=== PATIENT | male | born 1980 | race Asian ===

== ENCOUNTER 2023-01-25 11:07 | Day surgery (SDC) | payer OTHER ==
[~2023-01-25] VITALS: Ht 170.2 cm; Wt 70.3 kg
[2023-01-25] MEDS ORDERED: fentaNYL citrate 0.05 MG/ML VIAL ONE (12:02)
[2023-01-25] MEDS ORDERED: diphenhydrAMINE 50 MG/ML VIAL ONE (12:02)
[2023-01-25] MEDS ORDERED: MIDAZOLAM 5 MG/5 ML VIAL ONE (12:03)
[2023-01-25] MEDS ORDERED: LIDOCAINE 2% 100 MG/5 ML UJET TP ONE (12:03)
== END 2023-01-25 13:50 | disposition home or self-care (01) ==
LOC: MDS 11:07 → MMU 11:12 → MDS 13:50
PROVIDERS: ATTEND Internal Medicine Gastroenterology
DX: Z12.11 Encounter for screening for malignant neoplasm of colon (principal); E78.5 Hyperlipidemia, unspecified; Z80.0 Family history of malignant neoplasm of digestive organs
CPT/HCPCS: 45378; 82948; J1200; J2250; J3010